=== PATIENT | male | born 1940 | race Two or more races ===

== ENCOUNTER 2016-12-08 10:24 | Outpatient (CLI) | payer MEDICARE, OTHER ==
[~2016-12-08 10:24] MED LIST: ASPIRIN EC81 MG ORAL; AVODART0.5 MG ORAL; AZILECT1 MG PO; BONIVA150 MG ORAL; CARBIDOPA-LEVO1 EA13 ORAL; COUMADIN6 MG ORAL; COZAAR50 MG ORAL; DEXILANT30 MG ORAL; ENOXAPARIN80 MG/0.8 SUBQ; ERGOCALCIF50000 UNIT ORAL; FLOMAX0.4 MG ORAL; GLUCOTROL5 MG ORAL; MEGACE ES625 MG/5 M ORAL; METFORMIN HCL1000 M1 ORAL; METFORMIN HCL500 M1 ORAL; MIRALAX17 G2 ORAL; PRIMIDONE50 MG ORAL; SIMVASTATIN20 MG ORAL; SINEMET 25/2501 E1 ORAL
--- NOTE | 2016-12-08 11:30 | GI Progress Note ---
Assessment/Plan Problems: (1) Gastritis ICD Codes: K29.70 - Gastritis, unspecified, without bleeding SNOMED: 2261054 (2) Constipation ICD Codes: K59.00 - Constipation, unspecified SNOMED: 44550052 (3) Colon polyp ICD Codes: K63.5 - Colon polyp SNOMED: 04918998 (4) GERD (gastroesophageal reflux disease) ICD Codes: K21.9 - GERD (gastroesophageal reflux disease) SNOMED: 898498544 Status: stable Status Narrative Seen with Dr. Javed. Assessment/Plan recommended Align rx Miralax RTC x 3 months Subjective Subjective gas bloating constipation no wt loss no BRBPR GERD Objective T 97.9 BP 112/58 P 78 General Appearance: no apparent distress, alert Cardiovascular: normal rate Respiratory/Chest: normal breath sounds, no respiratory distress Abdominal Exam: normal bowel sounds, non tender, soft Extremities: normal range of motion Sherry Clifford N.P. Dec 08, 2016 11:30
[2016-12-08 14:47] VITALS: BP 112/58
== END 2016-12-08 10:45 | disposition home or self-care (01) ==
LOC: PAN 10:24
DX: K29.70 Gastritis, unspecified, without bleeding (principal); K59.00 Constipation, unspecified; K63.5 Polyp of colon; K21.9 Gastro-esophageal reflux disease without esophagitis

== ENCOUNTER 2018-10-18 10:18 | Outpatient (CLI) | payer MEDICARE, OTHER ==
[2018-10-18] MEDS ORDERED: FERROUS SULFAT325 MG ORAL (15:03)
[2018-10-18] MEDS ORDERED: CALCIUM 500 +1 EAC3 PO (15:03)
[2018-10-18] MEDS ORDERED: [UNRECOGNIZED DRUG - OTHER] PO (15:03)
[2018-10-18] MEDS ORDERED: DOK100 M1 PO (15:03)
[2018-10-18] MEDS ORDERED: EFFEXOR XR75 MG ORAL (15:03)
[2018-10-18] MEDS ORDERED: ELIQUIS2.5 MG PO (15:03)
[2018-10-18] MEDS ORDERED: HYDROCORTISONE PO ×2 (15:03)
[2018-10-18] MEDS ORDERED: NAMENDA10 MG ORAL (15:03)
[2018-10-18] MEDS ORDERED: VENLAFAXINE HCL75 MG ORAL (15:03)
[2018-10-18 15:09] VITALS: BP 131/76
--- NOTE | 2018-10-20 13:30 | General Progress Note ---
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
== END 2018-10-18 12:18 | disposition home or self-care (01) ==
LOC: PAN 10:18
DX: K21.9 Gastro-esophageal reflux disease without esophagitis (principal); K29.70 Gastritis, unspecified, without bleeding; K63.5 Polyp of colon; K59.00 Constipation, unspecified; Z86.718 Personal history of other venous thrombosis and embolism; C67.9 Malignant neoplasm of bladder, unspecified; C49.9 Malignant neoplasm of connective and soft tissue, unspecified
CPT/HCPCS: 99212

== ENCOUNTER 2020-01-22 13:27 | Outpatient (CLI) | payer MEDICARE, OTHER ==
[~2020-01-22 13:27] MED LIST changes: +CALCIUM 500 +1 EAC3 PO; +DOK100 M1 PO; +EFFEXOR XR75 MG ORAL; +ELIQUIS2.5 MG PO; +FERROUS SULFAT325 MG ORAL; +HYDROCORTISONE PO; +NAMENDA10 MG ORAL; +VENLAFAXINE HCL75 MG ORAL; +[UNRECOGNIZED DRUG - OTHER] PO
--- NOTE | 2020-01-22 14:29 | General Progress Note ---
Subjective ROS Limited/Unobtainable: No Allergies: Coded Allergies: No Known Allergies (Unverified , 11/16/11) Objective General Appearance: alert EENT: PERRL/EOMI Neck: supple Cardiovascular: normal peripheral pulses Respiratory/Chest: decreased breath sounds Abdomen: normal bowel sounds, non tender, soft Extremities: non-tender Assessment/Plan Assessment/Plan: Assessment/Plan Problem List: (1) GERD (gastroesophageal reflux disease) ICD Codes: K21.9 - GERD (gastroesophageal reflux disease) SNOMED: 234753631 (2) Gastritis ICD Codes: K29.70 - Gastritis, unspecified, without bleeding SNOMED: 5494084 (3) Colon polyp ICD Codes: K63.5 - Colon polyp SNOMED: 02594902 (4) Constipation ICD Codes: K59.00 - Constipation, unspecified SNOMED: 70992271 (5) H/O deep venous thrombosis ICD Codes: Z86.718 - H/O deep venous thrombosis SNOMED: 689929191 (6) Bladder cancer ICD Codes: C67.9 - Bladder cancer SNOMED: 140280834 (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
[2020-01-23] MEDS ORDERED: SENNA8.6 M2 PO (15:02)
[2020-01-23] MEDS ORDERED: AMARYL1 MG ORAL (15:06)
[2020-01-23] MEDS ORDERED: HYDROCORTISONE10 MG PO (15:06)
[2020-01-23] MEDS ORDERED: VITAMIN D PO (15:06)
[2020-01-23] MEDS ORDERED: BETA CAROT10000 UNIT PO (15:06)
== END 2020-01-22 15:27 | disposition home or self-care (01) ==
LOC: PAN 13:27
DX: K21.9 Gastro-esophageal reflux disease without esophagitis (principal); K29.70 Gastritis, unspecified, without bleeding; K63.5 Polyp of colon; K59.00 Constipation, unspecified; Z86.718 Personal history of other venous thrombosis and embolism; C67.9 Malignant neoplasm of bladder, unspecified; C49.9 Malignant neoplasm of connective and soft tissue, unspecified